=== PATIENT | male | born 1945 ===

== ENCOUNTER 2016-10-14 06:57 | Day surgery (SDC) | payer OTHER ==
--- NOTE | 2016-10-13 10:58 | HISTORY AND PHYSICAL ---
ADMITTED: 10/14/2016 HISTORY OF PRESENT ILLNESS: The patient is a 71-year-old male who several years ago sustained a comminuted fracture of his left great toe. He states it has progressively gotten more painful. It is very arthritic, difficult with shoe gear. States that he would like to have the bone fragments removed. MEDICAL/SURGICAL HISTORY: Medical history essentially noncontributory, history of heartburn. Surgical history: Tonsils and adenoids removed. PCP: Dr. Hall at the [facility]. MEDICATIONS: 1. Omeprazole 20 mg tab 1 by mouth daily. 2. One baby aspirin daily. ALLERGIES: 1. SHE REPORTS NO KNOWN DRUG OR FOOD ALLERGY. SOCIAL HISTORY: He is , former smoker, does not drink. Employed by the [facility] [employer]. FAMILY HISTORY: History of diabetes, both maternal and paternal. REVIEW OF SYSTEMS: A 10-point review of systems noncontributory to the chief complaint. PHYSICAL EXAMINATION: GENERAL: The patient is alert and oriented x3. HEENT: PERRLA. Normocephalic. HEART: Regular rate and rhythm. Regular S1 and S2. No murmurs, or gallops. LUNGS: Clear to auscultation. No wheezing, rhonchi, or rales. ABDOMEN: Soft, nontender, nondistended. No palpable masses. Normal tones. LOWER EXTREMITY: Vascular: DP and PT pulses are palpable at +2/4. Subpapillary venous plexus capillary refill within normal limits. NEUROLOGIC: Deep tendon reflexes, epicritic sensation are intact. Orthopedically there is crepitus within the left IP joint. Pain with stress dorsiflexion. Moderate amount of swelling. LAB/IMAGING: Imaging revealed bone fragment intra-articularly. Under fluoroscopy , there is still a visible fracture line which goes into the joint. IMPRESSION: 1. Posttraumatic arthritis, left interphalangeal joint, great toe. PLAN: The patient is scheduled for an outpatient procedure consisting of an open arthrotomy and arthroplasty of the IP joint of the left great toe. He is well aware of the planned procedure and there are contraindications to surgical intervention. Surgery is scheduled on an outpatient basis on 10/14/2016 at [facility].
[~2016-10-14] VITALS: Ht 162.6 cm; Wt 88.0 kg
[~2016-10-14 06:57] MED LIST: ASPIRIN ADULT L81 M1 PO; LANSOPRAZOLE30 MG PO
--- NOTE | 2016-10-14 08:50 | NUR ---
PT ADMITTED FOR REMOVAL OF BONE FRAGMENT FROM HIS BROKEN LEFT GREAT TOE. PT CONFIRMED HIS NAME, , MEDICATIONS AND ALLERGIES, NPO STATUS, PLANNED PROCEDURE, SITE AND SIDE. PRE-OP TEACHING COMPLETED, QUESTIONS ANSWERED. IF ACCESS ESTABLISHED IN LEFT HAND AFTER ONE UNSUCCESSFUL ATTEMPT IN LEFT FOREARM. WARM BLANKETS FOR COMFORT. CALL LIGHT WITHIN EASY REACH.
--- NOTE | 2016-10-14 10:20 | NUR ---
PT UP OOB TO BATHROOM WITH STAND-BY ASSIST.
[2016-10-14] MEDS ORDERED: PERCOCET1 TA4 PO (11:45)
--- NOTE | 2016-10-14 11:47 | Provider's Discharge Care Plan ---
Problem, Goal, Plan Problem List 1. Major osseous defect, left ankle and foot Goals: Improve function Instructions: Follow up as directed
--- NOTE | 2016-10-14 11:47 | Provider's Discharge Care Plan ---
Problem, Goal, Plan Problem List 1. Major osseous defect, left ankle and foot Goals: Improve function Instructions: Follow up as directed
--- NOTE | 2016-10-14 11:51 | NUR ---
TRANSFERRED TO PACU VIA STRETCHER, HEAD OF BED ELEVATED 15 DEGREES, FOOOT OF BED GNATCHED, ELEVATED. ICE PLACE BEHIND LEFT KNEE. PT AWAKENS EASILY TO VOICE, PAIN RELIEF PROVIDED FOR AND DOCUMENTED BY ANESTHESIA AT THIS TIME.
--- NOTE | 2016-10-14 12:36 | NUR ---
PT RECEIVED BACK TO SCU AWAKE AND DENYING ANY PAIN. NO NAUSEA. TAKING COFFEE PO, MEAL OFFERED.
--- NOTE | 2016-10-14 12:37 | NUR ---
MILD TO MODERATE SURGICAL SITE PAIN RELIEVED TO 1/10 SCORE AT TIME OF TRANSFER TO ROOM. HAD REPORTED EPISODE OF CHEST DISCOMFORT, MILD PRESSURE LIKE HEARTBURN ON REPOSITIONING TO MORE OF A SITTING POSITION ON STRETCHER. VS STABLE, SEEN BY ANESTHESIA, STABLE FOR RETURN TO ROOM. REPOERT GIVEN TO CHRISTOPHE Mills RN
--- NOTE | 2016-10-14 12:54 | NUR ---
CLARIFIED WITH DR VALENTINE: PT TO GO HOME WITH POST-OP SHOE.
[2016-10-14 13:12] VITALS: BP 126/64
--- NOTE | 2016-10-14 13:53 | OPERATIVE REPORT ---
DATE OF SURGERY: 10/14/2016 SURGEON: Alfred Briscoe DPM PREOPERATIVE DIAGNOSES: 1. Posttraumatic arthritis interphalangeal joint, left great toe POSTOPERATIVE DIAGNOSES: 1. Posttraumatic arthritis, interphalangeal joint, left great toe PROCEDURE PERFORMED: 1. Arthroplasty, arthrotomy, left great toe interphalangeal joint. HEMOSTASIS: Achieved by pneumatic ankle tourniquet inflated to 250 mmHg pressure. TOURNIQUET TIME: Total tourniquet time 17 minutes. MATERIALS: 3-0 Polysorb and 4-0 Surgipro. INJECTABLES: Injected 10 mL of 0.5% bupivacaine plain. COMPLICATIONS: None. CONDITION: The patient tolerated anesthesia and procedure well. INDICATIONS: The patient is a 71-year-old male who sustained a closed fracture of the proximal phalanx of the left great toe. It has healed with arthritic changes in the joint. It is painful with range of motion and he has opted for surgical procedure. He is well aware of the planned procedure of an open arthrotomy, arthroplasty of the IP joint of the left great toe, there are no contraindications to surgery at this time. SURGICAL TECHNIQUE: The patient was brought to the operating room, placed on the operative table in the supine position. Pneumatic tourniquet was then placed above the left ankle. The left lower extremity was prepped and draped in normal sterile fashion. An intraoperative pause was carried out for positive identification, proper limb, and consent form verified and confirmed. Also identified is 2 grams of cefazolin being delivered. Esmarch bandage was then utilized to exsanguinate the limb, the tourniquet was inflated. Attention was directed to procedure #1. PROCEDURE #1: ARTHROTOMY AND ARTHROPLASTY, LEFT GREAT TOE INTERPHALANGEAL JOINT: At this time, a transverse incision was made across the interphalangeal joint, medial to lateral, deepened by sharp and blunt dissection. The long extensor tendon was transected and reflected back proximally and distally. The hypertrophy and abnormal bone was visualized at the head of the proximal phalanx. At the surgical neck of the proximal phalanx, the abnormal bone was excised via sagittal saw. It was contoured to a nice smooth edge. The area was flushed. The long extensor tendon was reapproximated in a figure-of- eight fashion with 3-0 Polysorb, skin edge reapproximated in running fashion with 4-0 Surgipro and 10 mL of the aforementioned local anesthetic was administered. A light compressive dressing was applied. The tourniquet was released with normal reactive hyperemia and good digital perfusion. The patient tolerated the procedure without complication. PLAN: The patient will be dispensed a postoperative shoe. Follow back in our office in 3-5 days. There were no complications.
--- NOTE | 2016-10-14 15:02 | NUR ---
POST-OP SHOE FITTED ON LEFT FOOT. PT MEDICATED WITH PERCOCET 1 TAB PO FOR MILD PAIN WITH WEIGHT BEARING. PT ATE LIGHT LUNCH AND TOLERATED WELL. DISCHARGE INSTRUCTIONS REVIEWED WITH PT AND QUESTIONS ANSWERED. VSS. PT DISCHARGED TO HOME. TAKEN TO EXIT VIA WC, ACCOMPANIED BY NURSE. BELONGINGS HOME WITH PT.
== END 2016-10-14 13:50 | disposition home or self-care (01) ==
LOC: SDC SRH 06:57 → SCU SRH 06:57 → SDC SRH 09:30 → OR SRH 09:30 → SDC SRH 13:50
PROVIDERS: Podiatrist
PROC: 0QBR0ZZ Excision of Left Toe Phalanx, Open Approach (ICD-10-PCS; principal; 2016-10-14 09:30)
DX: M19.172 Post-traumatic osteoarthritis, left ankle and foot (principal)
CPT/HCPCS: 29229; 29240; 50002; 60001; 70002; 80575; 83266; 83414; 84038; 84522; 90074; 90100; 95059